=== PATIENT | male | born 1995 | race Caucasian/White ===

== ENCOUNTER 2024-09-30 15:50 | Emergency (ER) | payer OTHER, SELFPAY ==
[2024-09-30 15:53] VITALS: BP 94/55
[2024-09-30 16:47] VITALS: BP 132/81
--- NOTE | 2024-09-30 16:59 | ED.GENMED ---
History of Present Illness
General
Chief Complaint: Anxiety
Source: patient
Exam Limitations: none
Time Seen by Provider: 09/30/24 16:14
Nursing documentation reviewed up to this point in time: agreed with
History of Present Illness
History of Present Illness:
Patient with history of anxiety, presents to ED requesting assistance, due to increased anxiety episodes at home. Denies suicidal or homicidal ideation. Patient has been taking marijuana for a long period of time, but was discontinued recently and
started on Lyrica by his primary care physician. Otherwise, patient has no additional complaints. Denies recent illness.
Past History
Past History
ED Past Medical History: Other (Irritable bowel syndrome) and Other (anxiety)
ED Past Surgical History: None
Social History
Tobacco: Smoker
Drug: None
Personal: Single
Employment: Not employed
Family History
Family History: Other
Review of Systems
Review of Systems
Allergies reviewed?: Yes
All Other Systems: ROS reviewed and negative except as documented in HPI and ROS
Constitutional: Reports no symptoms; Denies fever or chills
Respiratory: Reports no symptoms
Cardiac: Reports no symptoms
ABD/GI: Reports no symptoms
Musculoskeletal: Reports no symptoms
Skin: Reports no symptoms
Neurological: Reports no symptoms
Psychiatric: Reports anxiety
Phy Exam
Physical Exam
Physical Exam:
Physical Exam
General: no apparent distress, not acutely ill. afebrile
Head: nc/at. eomi
Neck: supple. normal range of motion.
Neuro: alert and oriented x 3. no focal neurological deficits
Skin: no rash
Psychiatric: well kept. interactive and cooperative. anxious appearing
Extremities: no edema. no calf tenderness.
Course
Orders/Labs/Results
Orders:
Orders
09/30/24 15:59
ECG [Electrocardiogram (*1)] Urgent
Reason for Study: Other
Other Reason for Exam: anxiety
09/30/24 16:01
EKG- Treatment ONCE
09/30/24 16:21
Crisis Consult Urgent
Reason for Consult: anxiety
09/30/24 17:02
Lorazepam [Ativan] 1 mg .ROUTE .STK-MED ONE
09/30/24 17:05
Lorazepam [Ativan] 1 mg PO NOW STA
09/30/24 15:59
09/30/24 15:59
Vital Signs
Initial and Last Documented VS:
Initial Vital Signs
Temp Pulse Resp BP Pulse Ox
98.2 F 119 20 94/55 99
09/30/24 15:53 09/30/24 15:53 09/30/24 15:53 09/30/24 15:53 09/30/24 15:53
Last Documented Vital Signs
Temp Pulse Resp BP Pulse Ox
98.4 F 82 24 132/81 97
09/30/24 16:47 09/30/24 16:47 09/30/24 16:47 09/30/24 16:47 09/30/24 16:47
MDM/Problems Addressed
MDM/Problems Addressed:
Patient evaluated in ED by [facility] building maintenance worker, who provided patient with outpatient resources, including walk-in evaluation at [facility] tomorrow morning. Short-term, patient will be provided with dose of Ativan prior to
discharge, to the care of his mother.
*Critical Care Note
Total Time (30-74mins, 75-104mins- exclusive of procedures): Not Applicable
ED Attending Note
-
Portions of this chart may have been created with voice recognition software.� Occasional wrong word or��sound alike� substitutions may have occurred due to the inherent limitations of voice recognition software.
Discharge Plan
Departure
Patient Disposition: Home (Routine Discharge)
Date of Disposition: 09/30/24
Time of Disposition: 17:00
Patient with high blood pressure during this ER visit?: Yes
Condition: Good
Discharge Problem:
Anxiety
Instructions: Anxiety, Adult (DC)
Prescriptions:
No Action
alprazolam 1 MG tablet
1 mg PO [id number] PRN (Reason: anxiety)
zolpidem 10 MG tablet
10 mg PO HS
Referrals:
Chung Krueger I., DO [Family Provider] -
Activity Restrictions/Additional Instructions:
As discussed, please follow-up with referred outpatient resources for further evaluation and treatment, including [facility], where you could present yourself for an immediate evaluation, as a walk-in patient.
Interventions
Interventions:
*Risk Screen - Suicide Last Done: 09/30/24 17:11
*General Assessment Last Done: 09/30/24 15:53
*Neglect/Abuse Screening Last Done: 09/30/24 17:11
ED- Fall Risk Assessment Last Done: 09/30/24 17:12
*ED COVID-19 Vaccine History Last Done: 09/30/24 17:09
*Nursing Disposition Last Done: 09/30/24 17:12
ED-Psychological Assessment Last Done: 09/30/24 17:09
Discharge Date and Time
Discharge Date/Time: 09/30/24 17:13
Print Language: OMANI
[2024-09-30] MEDS: ATIVAN 1 MG PO (17:06)
== END 2024-09-30 17:13 | disposition home or self-care (01) ==
LOC: EMR 15:50
PROVIDERS: EMERGENCY PHYSICIAN Emergency Medicine; FAMILY PHYSICIAN Internal Medicine
DX: F41.9 Anxiety disorder, unspecified (principal); K58.9 Irritable bowel syndrome, unspecified; F17.200 Nicotine dependence, unspecified, uncomplicated; Z79.899 Other long term (current) drug therapy
CPT/HCPCS: 99283; 93005